=== PATIENT | female | born 1960 | race Caucasian/White ===

== ENCOUNTER → 2017-04-24 | Outpatient (CLI) | payer SELFPAY ==
[~2017-04-24] MED LIST: ACHD5005 PO; ALBU2.5V52 INH; ALPR1TAB21; ARIP2TAB10 PO; BENZ-13 PO; CEPH500C PO; CLIN300C3 PO; CLON1TAB36 PO; CPR500T PO; CYCL10TA9 PO; DIAZ10TA PO; DIAZ10TA3; ESTR2TAB; FLUO40CA PO; HYDR-3812 PO; HYDROCHLOROT; IBP800T PO; LEVO125T6; MEDR5TAB4; NAPR-243 PO; NAPR220C11 PO; PRD20T PO; TRAZ150T42 PO
--- NOTE | 2017-04-24 18:07 | Diagnostic Imaging Report ---
INDICATION: Chronic neck pain, worsening on the right side. TECHNIQUE: AP, lateral and odontoid views cervical spine. CORRELATION STUDY: None FINDINGS: Static imaging demonstrates straightening of the normal cervical lordosis. Alignment otherwise anatomic. Vertebral body heights are maintained. There is moderate to marked disc space narrowing disproportionately at C6-C7 and to a lesser degree C7-T1 and C5-C6 levels. Endplate osteophyte and spur-like formation present. Prevertebral soft tissues are unremarkable. The odontoid intact with lateral masses of C1 and C2 aligned. There may be a partially fractured right mandibular molar. IMPRESSION: 1. Prominent asymmetric disc space narrowing in lower cervical spine, most severe at C6-C7 level. Dictated by: Dictated on workstation # [id number]
== END ==
LOC: RAD 17:03
DX: M48.02 Spinal stenosis, cervical region (principal)
CPT/HCPCS: 72040

== ENCOUNTER 2018-04-02 19:50 | Emergency (ER) | payer MEDICARE, MEDICAID ==
[~2018-04-02] VITALS: Ht 157.5 cm; Wt 68.0 kg
[~2018-04-02 19:50] MED LIST changes: -HYDR-3812 PO
--- NOTE | 2018-04-02 20:50 | ED Lower Extremity ---
General Chief Complaint: Lower Extremity Stated Complaint: KNEE PAIN Source: patient (PT IS DIFFICULT HISTORIAN --SPEECH IS VERY RAPID AND ERRATIC, DIFFICULT TO KEEP ON SUBJECT, AND DIFFICULTY COMPLETING SENTENCES) History of Present Illness Date Seen by Provider: Apr 02, 2018 Time Seen by Provider: 20:20 Initial Comments PT ARRIVES VIA POV C/O RIGHT KNEE PAIN SINCE YESTERDAY STATES SHE GOT OUT OF TRUCK AND HER KNEE STARTED HURTING --DID NOT INJURE IT OR TWIST IT, ETC. STATES TODAY SHE WAS STANDING AND SHE REACHED INTO THE BACK OF HER TRUCK AND "FELT LIKE SOMETHING SNAPPED" IN THE BACK OF HER KNEE--THIS OCCURRED AROUND 1400 NO PRIOR PROBLEMS WITH KNEES, PER PT PT HAS CHRONIC BACK PAIN AND TAKES MORPHINE AND HYDROCODONE DAILY FOR CHRONIC PAIN NO CHANGE IN CHRONIC "NERVE DAMAGE" PAIN AND NUMBNESS/TINGLING TO BACK AND LEGS NO SWELLING OR BRUISING TO KNEE PCP: DR. POLLOCK Allergies and Home Medications Allergies Coded Allergies: Penicillins (Unverified Allergy, Mild, 04/14/09) Home Medications Clonazepam 1 Mg Tablet, 1 MG PO BID, (Reported) Cyclobenzaprine HCl 10 Mg Tablet, 10 MG PO HS PRN for SPASMS Prescribed by: DORIS HUDSON on 03/14/151708 Fluoxetine Hcl 40 Mg Capsule, 40 MG PO DAILY, (Reported) Hydrocodone Bit/Acetaminophen 1 Each Tablet, 1 EACH PO Q4H PRN for PAIN Prescribed by: DORIS HUDSON on 03/14/151708 Naproxen Sodium 220 Mg Capsule, 220 MG PO DAILY, (Reported) Prednisone 20 Mg Tab, 20 MG PO DAILY Prescribed by: DORIS HUDSON on 03/14/151708 Patient Home Medication List Home Medication List Reviewed: Yes Review of Systems Constitutional: no symptoms reported Musculoskeletal: see HPI Skin: no symptoms reported Psychiatric/Neurological: See HPI Past Jymzgqq-Ynedue-Yuaizs Hx Patient Social History Alcohol Use: Occasionally Uses (HEAVY AT TIMES) Recreational Drug Use: No Smoking Status: Current Everyday Smoker (1 1/2 PPD) Recent Foreign Travel: No Contact w/Someone Who Travel: No Seasonal Allergies Seasonal Allergies: No Past Medical History Surgeries: Yes (RIGHT SHOULDER/LABRAL TEAR; D&C; RECTAL FISSURE AND COLON POLYPECTOMY; OVARIAN CYST REMOVAL; TEETH REMOVED) Appendectomy, Orthopedic, Rectal Respiratory: Yes Chronic Bronchitis Cardiac: Yes Hypertension Neurological: Yes ("NERVE DAMAGE FROM BACK" PER PT) Neuropathy Reproductive Disorders: No 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 Sexually Transmitted Disease: No Genitourinary: No Gastrointestinal: No Musculoskeletal: Yes (CHRONIC BACK PAIN--NARCOTIC DEPENDENT--MORPHINE + HYDROCODONE; SPINAL STENOSIS) Degenerate Disk Disease, Chronic Back Pain Endocrine: No HEENT: No (TEETH REMOVED) Cancer: No Psychosocial: Yes Anxiety, Depression Integumentary: No Adverse Reaction/Blood Tranf: No Family Medical History No Pertinent Family Hx Physical Exam Vital Signs Vital Signs - First Documented 04/02/18 20:17 Temp 97.6 Pulse 109 Resp 22 B/P (MAP) 172/97 (122) Pulse Ox 99 O2 Delivery Room Air Capillary Refill : Height, Weight, BMI Height: 5'2" Weight: 175lbs. oz. 79.485887tk; BMI Method:Stated General Appearance: other (DRAMATIC; CONSTANT MOVEMENTS OF ENTIRE BODY, SPEECH RAPID AND ERRATIC; REEKS OF CIGARETTES) Cardiovascular: normal peripheral pulses Hips: right hip normal inspection Legs: right leg normal inspection Knees: right knee bone tenderness, right knee joint effusion, right knee pain, right knee soft tissue tenderness, right knee swelling, right knee other ( DIFFUSE TENDERNESS TO RIGHT KNEE, MILD SWELLING/EFFUSION; UNABLE TO DETERMINE IF LIGAMENT LAXITY IS PRESENT DUE TO PT DISCOMFORT; NO BRUISING OR DEFORMITY; MOTOR/SENSORY/VASCULAR INTACT) Ankles: right ankle normal inspection Feet: right foot normal inspection Neurologic/Tendon: normal sensation, normal motor functions, normal tendon functions Neurologic/Psychiatric: tester regulator II-XII nml as tested, no motor/sensory deficits, alert, oriented x 3, other (ANXIOUS, BEHAVIOR/SPEECH NOTED ABOVE) Skin: normal color, warm/dry Procedures/Interventions Splinting and Joint Reduction : Dipesh wrap: Yes Immobilizers: 19 inch Knee Ordered: Crutches Progress/Results/Core Measures Results/Orders My Orders Orders - ROSINA YU DO Knee, Right, 3 Views (04/02/18 20:27) Dipesh Bandage (04/02/18 21:00) Crutches (04/02/18 21:00) Flexion Limit Knee (04/02/18 21:00) Vital Signs/I&O 04/02/18 20:17 Temp 97.6 Pulse 109 Resp 22 B/P (MAP) 172/97 (122) Pulse Ox 99 O2 Delivery Room Air Progress Progress Note : Progress Note NO ORTHO COVERAGE TODAY Diagnostic Imaging Comments XRAYS RIGHT KNEE--NO ACUTE PROCESS, MILD TO MODERATE OSTEOARTHRITIS, NO LARGE JOINT EFFUSION, PER RADIOLOGIST REPORT @ 2104 Reviewed: Reviewed by Me Departure Impression Primary Impression: Sprain of right knee Disposition: HOME, SELF-CARE Condition: Stable Departure-Patient Inst. Referrals: OLAYINKA POLLOCK MD (PCP/Family) Primary Care Physician REMBERTO PARSONS MD ORTHO 4 STATES Patient Instructions: Going Up and Down Curbs or Stairs With a Walker or Crutches, How to Use Crutches, How to Use an Elastic Bandage, Knee Immobilizer ( DC), Knee Sprain (DC) Add. Discharge Instructions: ICE, DIPESH WRAP, KNEE IMMOBILIZER AND CRUTCHES ELEVATE LEG MUCH POSSIBLE TAKE YOUR HOME PAIN MEDICATIONS PRESCRIBED FOLLOW UP WITH ORTHOPEDIC SURGEON OF CHOICE NEXT WEEK FOR FURTHER CARE All discharge instructions reviewed with patient and/or family. Voiced understanding. ROSINA YU DO Apr 02, 2018 20:50
--- NOTE | 2018-04-02 21:07 | Diagnostic Imaging Report ---
EXAMINATION: Right knee radiographs, 3 views. COMPARISON: Right knee radiographs October 23, 2007. HISTORY: 57-year-old female, right knee pain and swelling. FINDINGS: There is no identified acute fracture or dislocation. There is mild to moderate patellofemoral compartment joint space loss with small osteophytes. The medial and lateral compartments are not significantly narrowed. IMPRESSION: 1. No identified acute bony abnormality of the right knee. 2. Mild to moderate patellofemoral compartment osteoarthritis. No large knee joint effusion. Dictated by: Dictated on workstation # [id number]
[2018-04-02 21:34] VITALS: BP 172/97
== END 2018-04-02 21:34 | disposition home or self-care (01) ==
LOC: EDUNIT# 19:50 → ER 19:52
DX: S83.91XA Sprain of unspecified site of right knee, initial encounter (principal); I10 Essential (primary) hypertension; F41.9 Anxiety disorder, unspecified; F32.9 Major depressive disorder, single episode, unspecified; F17.210 Nicotine dependence, cigarettes, uncomplicated; Z86.010 Personal history of colon polyps; Z87.448 Personal history of other diseases of urinary system; Z90.89 Acquired absence of other organs; Z88.0 Allergy status to penicillin; Z79.52 Long term (current) use of systemic steroids; X50.1XXA Overexertion from prolonged static or awkward postures, initial encounter
CPT/HCPCS: 73562

== ENCOUNTER 2019-03-02 05:51 | Outpatient (CLI) | payer MEDICARE, MEDICAID ==
[~2019-03-02] VITALS: Ht 157.5 cm; Wt 68.0 kg
[2019-03-02] MEDS ORDERED: MORP-34 PO (14:06)
[2019-03-02] MEDS ORDERED: AMIT10TA6 PO (14:06)
[2019-03-02] MEDS ORDERED: HYDR-3820 PO (14:06)
[2019-03-02] MEDS ORDERED: ESTR42.52 VG (14:08)
== END 2019-03-02 14:09 ==
LOC: PREOP 05:51
PROVIDERS: ATTEND Surgery
DX: Z01.818 Encounter for other preprocedural examination (principal); Z86.010 Personal history of colon polyps

== ENCOUNTER → 2019-07-06 | Outpatient (CLI) | payer MEDICARE, MEDICAID ==
[~2019-07-06] MED LIST changes: +AMIT10TA6 PO; +ESTR42.52 VG; +HYDR-3820 PO; +MORP-34 PO
[2019-07-06 11:56] LABS: BASOPHILS % (AUTO) 0 % (0-10); EOSINOPHILS # (AUTO) 0.2 10^3/uL (0.0-0.3); EOSINOPHILS % (AUTO) 4 % (0-10); HEMATOCRIT 38 % (35-52); HEMOGLOBIN 12.4 G/DL (11.5-16.0); LYMPHOCYTES # (AUTO) 1.8 X 10^3 (1.0-4.0); LYMPHOCYTES % (AUTO) 34 % (12-44); MEAN CORPUSCULAR HEMOGLOBIN 28 PG (25-34); MEAN CORPUSCULAR HGB CONC 33 G/DL (32-36); MEAN CORPUSCULAR VOLUME 87 FL (80-99); MEAN PLATELET VOLUME 8.7 FL (7.4-10.4); MONOCYTES # (AUTO) 0.4 X 10^3 (0.0-1.0); MONOCYTES % (AUTO) 7 % (0-12); NEUTROPHILS % (AUTO) 55 % (42-75); PLATELET COUNT 239 10^3/uL (130-400); RED CELL DISTRIBUTION WIDTH 12.9 % (10.0-14.5); WHITE BLOOD COUNT 5.4 10^3/uL (4.3-11.0)
[2019-07-06 12:12] LABS: ALANINE AMINOTRANSFERASE 20 U/L (0-55); ALBUMIN 3.9 GM/DL (3.2-4.5); ALKALINE PHOSPHATASE 101 U/L (40-136); BILIRUBIN,TOTAL 0.4 MG/DL (0.1-1.0); BUN/CREATININE RATIO 35; CARBON DIOXIDE 21 MMOL/L (21-32); CHLORIDE 108 MMOL/L (98-107); CREATININE SERUM 0.68 MG/DL (0.60-1.30); GFR ESTIMATED > 60; GLUCOSE 100 MG/DL (70-105); POTASSIUM 4.1 MMOL/L (3.6-5.0); SODIUM 139 MMOL/L (135-145); TOTAL PROTEIN 7.1 GM/DL (6.4-8.2)
--- NOTE | 2019-07-06 12:28 | Diagnostic Imaging Report ---
PROCEDURE: CT head without contrast. TECHNIQUE: Multiple contiguous axial images were obtained through the brain without the use of intravenous contrast. Auto Exposure Controls were utilized during the CT exam to meet ALARA standards for radiation dose reduction. INDICATION: Migraine head pain FINDINGS: There is no hemorrhage, hydrocephalus, edema, mass, mass effect or evidence for elevation of the intracranial pressures. The basilar cisterns are patent. The calvarium and orbits unremarkable. The paranasal sinuses and mastoids are clear. IMPRESSION: Normal CT head. Dictated by: Dictated on workstation # [id number]
[2019-07-06 12:33] LABS: FREE T4 (FREE THYROXINE) 0.98 NG/DL (0.70-1.48)
== END ==
LOC: RAD 11:28
PROVIDERS: ATTEND Nurse Practitioner Family
DX: E05.80 Other thyrotoxicosis without thyrotoxic crisis or storm (principal); G43.009 Migraine without aura, not intractable, without status migrainosus
CPT/HCPCS: 36415; 70450; 80053; 84436; 84439; 84443; 85025

== ENCOUNTER 2020-11-05 15:14 | Emergency (ER) | payer MEDICARE, MEDICAID ==
[~2020-11-05] VITALS: Ht 157 cm; Wt 79.0 kg
[~2020-11-05 15:14] MED LIST changes: +ACHYD1T PO; -AMIT10TA6 PO; +AMT10T PO; -HYDR-3820 PO; -MORP-34 PO; +MORP-69 PO
--- NOTE | 2020-11-05 15:38 | ED Lower Extremity ---
General Chief Complaint: Lower Extremity Stated Complaint: KNEE PAIN FROM FALL Nursing Triage Note: ARRIVED VIA WC WITH COMPLAINTS OF LEFT KNEE PAIN. STATES SHE FELL X2 WEEKS AGO HURTING IT AND WAS IN THE SHOWER THIS AM AND ALMOST FELL HURTING IT AGAIN. STATES IT HAS BECAME SWOLLEN SINCE THE SHOWER INCIDENT AND PAIN HAS INCREASED. PT STATES SHE TOOK MS AND A HYDROCODONE HOSPITAL CODER. Nursing Sepsis Screen: No Definite Risk Source: patient Exam Limitations: no limitations History of Present Illness Date Seen by Provider: Nov 05, 2020 Time Seen by Provider: 15:25 Initial Comments Patient presents ER by private conveyance chief complaint of aggravation of an existing injury of her left knee. She says 2 weeks ago she fell to her knee and pinched her right shoulder at the same time. She was being followed by primary care and her swelling in her knee has been consistent and her pain has been getting better. She is chronically on morphine and has hydrocodone for breakthrough pain. While in the shower today she started to lose her balance and somehow caused a shooting pain from her knee that radiates down and up her leg. Swelling is no worse but her pain is. She took a morphine tablet and hydrocodone with some relief of pain she is now down to a 6 out of 10. She states she did not feel or hear any popping sensation. She is able to bear weight for transfer only now. Allergies and Home Medications Allergies Coded Allergies: Penicillins (Unverified Allergy, Mild, 04/14/09) Home Medications Amitriptyline HCl 10 Mg Tablet, 10 MG PO DAILY, (Reported) Estradiol 42.5 Gm Cream.appl, 2 GM VG MoTh, (Reported) Hydrocodone Bit/Acetaminophen 1 Each Tablet, 1 TAB PO Q4H PRN for PAIN-MILD TO MODERATE, (Reported) Morphine Sulfate 30 Mg Tablet.er, 30 MG PO Q12H, (Reported) Patient Home Medication List Home Medication List Reviewed: Yes Review of Systems Constitutional: No chills, No fever EENTM: No ear discharge, No ear pain Respiratory: No cough, No short of breath Cardiovascular: No chest pain, No edema Gastrointestinal: No abdominal pain, No nausea Genitourinary: No discharge, No dysuria Musculoskeletal: see HPI; No back pain; joint pain All Other Systems Reviewed Negative Unless Noted: Yes Past Ffegrpg-Abrddg-Kfkzhu Hx Patient Social History Alcohol Use: Denies Use Smoking Status: Current Everyday Smoker Type Used: Cigarettes 2nd Hand Smoke Exposure: Yes Recent Infectious Disease Expo: No Recent Hopitalizations: No Seasonal Allergies Seasonal Allergies: No Past Medical History Surgeries: Yes (anal fissure, R shoulder sx, ) Appendectomy, Oophorectomy, Orthopedic, Rectal Respiratory: No Chronic Bronchitis Cardiac: Yes Hypertension Neurological: Yes ("NERVE DAMAGE FROM BACK" PER PT) Neuropathy Reproductive Disorders: No 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 Sexually Transmitted Disease: No Genitourinary: No Gastrointestinal: Yes Polyps Musculoskeletal: Yes (stenosis) Degenerate Disk Disease, Chronic Back Pain Endocrine: No HEENT: No (TEETH REMOVED) Cancer: No Psychosocial: Yes Anxiety, Depression Integumentary: No Blood Disorders: No Adverse Reaction/Blood Tranf: No Family Medical History No Pertinent Family Hx Physical Exam Vital Signs Vital Signs - First Documented 11/05/20 15:20 Temp 36.5 Pulse 99 Resp 16 B/P (MAP) 185/99 (127) Pulse Ox 97 O2 Delivery Room Air Capillary Refill : Less Than 3 Seconds Height, Weight, BMI Height: 5'2.00" Weight: 150lbs. 0.0oz. 68.341952ks; 32.00 BMI Method:Stated General Appearance: WD/WN, mild distress HEENT: PERRL/EOMI, pharynx normal Neck: full range of motion, normal inspection Cardiovascular: normal peripheral pulses, regular rate, rhythm Respiratory: no respiratory distress, no accessory muscle use Hips: bilateral hip non-tender, bilateral hip normal inspection, bilateral hip normal range of motion Legs: bilateral leg non-tender, bilateral leg normal inspection, bilateral leg normal range of motion Knees: right knee non-tender, right knee normal inspection, right knee normal range of motion, right knee no evidence of injury; left knee pain (Anterior tibial), left knee soft tissue tenderness, left knee swelling, left knee other (Lacks about 15 to 20 degrees of extension due to pain.) Ankles: bilateral ankle non-tender, bilateral ankle normal inspection, bilateral ankle normal range of motion, bilateral ankle no evidence of injury Neurologic/Psychiatric: no motor/sensory deficits, alert, normal mood/affect, oriented x 3 Progress/Results/Core Measures Results/Orders My Orders Orders - CALEB MORGAN Knee, Left, 3 Views (11/05/20 15:33) Vital Signs/I&O 11/05/20 15:20 Temp 36.5 Pulse 99 Resp 16 B/P (MAP) 185/99 (127) Pulse Ox 97 O2 Delivery Room Air Blood Pressure Mean: 127 Progress Progress Note : Time: 15:36 Progress Note She is neurovascularly intact distal to the injury. She did not have a fall nor did she strike her head. No loss of consciousness. Suspect she has reaggravated an acute injury of her left knee. Probably ligamentous sprain/strain and we will give her an ice pack and get x-rays and reexamine her discomfort at that time. She has plenty of opiates on board we did discuss getting her a prescription for some Narcan just in case. She has asked for a muscle relaxant and we explained that this can cause unsafe levels of drowsiness and hypoventilation. We will reexamine her after short period. Diagnostic Imaging Diagonstic Imaging: Xray Plain Films/CT/US/NM/MRI: knee Comments [facility] [place], [place] NAME: ANJANA JARQUIN [facility] REC#: [id number] PT STATUS: REG ER : 1960 PHYSICIAN: CALEB MORGAN MD ADMIT DATE: 11/05/20/ER Draft Date of Exam:11/05/20 KNEE, LEFT, 3 VIEWS INDICATION: Knee pain post fall TECHNIQUE: 3 views of the left knee CORRELATION STUDY: None FINDINGS: The joint spaces are maintained. The articular surfaces are smooth and preserved. There is no acute bony abnormality. Soft tissues are unremarkable. IMPRESSION: 1. Negative for acute bony abnormality of the knee. Dictated on workstation # [id number] Dict: 11/05/20 1557 Trans: 11/05/20 1558 DO [id number] Interpreted by: ROMEL ZAMORA DO Electronically signed by: Reviewed: Reviewed by Me (Left) Departure Impression Primary Impression: Left knee sprain Qualified Codes: S83.422A - Sprain of lateral collateral ligament of left knee, initial encounter Disposition: HOME, SELF-CARE Condition: Stable Departure-Patient Inst. Decision time for Depature: 16:30 Referrals: OLAYINKA POLLOCK MD (PCP/Family) Primary Care Physician QUINN,CHANTAL F DO Patient Instructions: Knee Sprain ED Add. Discharge Instructions: Ice for 20 minutes every 2 hours while awake for the next 3 days. Heat and topical creams as necessary. Use your pain medicines to control the pain. Tomorrow call Dr. Cloud's office or the orthopedic surgeon of your choice for follow-up. Crutches or wheelchair as necessary. Weightbearing on the left leg as tolerated. Wear your knee immobilizer until you see the surgeon. All discharge instructions reviewed with patient and/or family. Voiced understanding. Copy Copies To 1: CHANTAL CLOUD TITUS J Nov 05, 2020 15:37
--- NOTE | 2020-11-05 15:58 | Diagnostic Imaging Report ---
INDICATION: Knee pain post fall TECHNIQUE: 3 views of the left knee CORRELATION STUDY: None FINDINGS: The joint spaces are maintained. The articular surfaces are smooth and preserved. There is no acute bony abnormality. Soft tissues are unremarkable. IMPRESSION: 1. Negative for acute bony abnormality of the knee. Dictated by: Dictated on workstation # [id number]
[2020-11-05 17:11] VITALS: BP 185/99
== END 2020-11-05 17:11 | disposition home or self-care (01) ==
LOC: EDUNIT# 15:14 → ER 15:16
DX: S83.8X2A Sprain of other specified parts of left knee, initial encounter (principal); I10 Essential (primary) hypertension; F32.9 Major depressive disorder, single episode, unspecified; G89.29 Other chronic pain; M54.9 Dorsalgia, unspecified; F41.9 Anxiety disorder, unspecified; F17.210 Nicotine dependence, cigarettes, uncomplicated; Z88.0 Allergy status to penicillin; Z79.891 Long term (current) use of opiate analgesic; W23.1XXA Caught, crushed, jammed, or pinched between stationary objects, initial encounter
CPT/HCPCS: 73562; 99283; L1830

== ENCOUNTER → 2020-12-12 | Outpatient (CLI) | payer MEDICARE, MEDICAID ==
[~2020-12-12] MED LIST changes: +CHOL500049 PO; +GLYC10.7 IH; +METO50TA7 PO; +OMEP40CA27 PO; +RT-ALBUINH IH; +TEMA15CA PO
--- NOTE | 2020-12-12 11:03 | Diagnostic Imaging Report ---
INDICATION: 60-year-old postmenopausal female. COMPARISON: None. FINDINGS: AP Spine L1-L4: [BMD (g/cm2): 1.127] [T-Score: -0.6] [Z-Score: 0.1] [BMD Previous: na] [BMD % Change: na] LT Hip Neck: [BMD (g/cm2): 0.780] [T-Score: -1.9] [Z-Score: -0.9] LT Hip Total: [BMD (g/cm2):0.921] [T-Score:-0.7] [Z-Score: -0.1] [BMD Previous: na] [BMD % Change: na] RT Hip Neck: [BMD (g/cm2):0.800] [T-Score:-1.7] [Z-Score:-0.8] RT Hip Total: [BMD (g/cm2):0.909] [T-score:-0.8] [Z-Score:-0.2] [BMD Previous:na] [BMD % Change:na] *Indicates significant change from prior examination based on 95% confidence level. World Health Organization criteria for BMD interpretation classify patients as Normal (T-score at or above -1.0), Osteopenic (T-score between -1.0 and -2.5) or Osteoporotic (T-score at or below -2.5). LIMITATIONS AND MODIFICATION: None. FRACTURE RISK (FRAX SCORE): The ten year probability of (%): Major Osteoporotic Fracture: [8.8] Hip Fracture: [1.6] IMPRESSION: 1. Osteopenia (Low bone mass). 2. Baseline examination. 3. See below National Osteoporosis Foundation guidelines on when to potentially initiate pharmacologic therapy. Based on the National Osteoporosis Foundation Guidelines, pharmacologic treatment should be initiated in any of the following, unless clinical conditions suggest otherwise: * Any patient with prior fragility fracture of the hip or vertebrae. A spine fracture indicates 5X risk for subsequent spine fracture and 2X risk for subsequent hip fracture. * Osteoporosis (T-score <-2.5). * Postmenopausal women and men age 50 and older with low bone mass/osteopenia (T-score between -1.0 and -2.5) by DXA and 10-year major osteoporotic fracture greater than 20% or a 10-year probability of hip fracture greater than 3%. These fracture risks are supplied above in the FRAX score, if applicable. * Clinician judgement and/or patient preferences may indicate treatment for people with 10-year fracture probabilities above or below these levels. Dictated by: Dictated on workstation # [id number]
--- NOTE | 2020-12-12 11:18 | Diagnostic Imaging Report ---
PROCEDURE: MRI lumbar spine. TECHNIQUE: Multiplanar, multisequence MRI of the lumbar spine was performed without contrast. INDICATION: Chronic back pain. COMPARISON: 11/27/2010 FINDINGS: For the purposes of this exam, last well-formed disc space is denoted to be the L5-S1 level. Evaluation of static alignment shows mild grade 1 anterolisthesis at L4-L5. There is no evidence of jumped facets. Vertebral body heights are maintained. There is no acute fracture. Evaluation of marrow signal demonstrates mild Modic type I change involving the adjacent endplates at L5-S1. Intervertebral disc heights show mild multilevel height loss. Visualized portions of the distal cord show small syrinx. This was present previously. Otherwise, included portions of the distal cord are unremarkable. Conus terminates at approximately the L1-L2 level. No abnormal intrathecal filling defects are seen. Pre and paravertebral soft tissue structures are unremarkable. Note is made of cystic fluid collection within the posterior pelvis that measures 9.3 x 8.1 cm. It is only partially included within the [id number]-pk-nizr. Axial images demonstrate the following: T12-L1: There is mild broad-based posterior disc bulge, eccentric to the left. There is also bilateral ligamentum flavum laxity and facet arthropathy. As a result, there is bivg-mh-jexlogyq narrowing of the spinal canal and minimal narrowing of the bilateral neural foramen. L1-L2: There is broad-based posterior disc bulge with bilateral ligamentum flavum laxity and facet arthropathy. As a result, there is mild narrowing of the spinal canal and bilateral neural foramen. L2-L3: There is slight broad-based posterior disc bulge and bilateral ligamentum flavum laxity and facet arthropathy. As a result, there is mild narrowing of the spinal canal and bilateral neural foramen. L3-L4: There is broad-based posterior disc bulge with bilateral ligamentum flavum laxity and facet arthropathy. As a result, there is moderate stenosis of the spinal canal and wghz-jn-svjofabm stenosis of bilateral neural foramen. L4-L5: There is unroofing of the disc secondary to previously described anterolisthesis. There is also mild broad-based posterior disc bulge and prominent bilateral facet arthropathy. This does result in severe spinal canal stenosis. Thecal sac is narrowed to approximately 5 mm in AP thickness. There is also moderate stenosis of the bilateral neural foramen. L5-S1: There is broad-based posterior disc bulge, eccentric to the left. There is also bilateral ligamentum flavum laxity and facet arthropathy. As a result, there is moderate narrowing of the spinal canal and left neuroforamen. There is mild narrowing on the right. IMPRESSION: 1. Multilevel degenerative changes of the lumbar spine greatest at the L4-L5 level as described above. Overall, degenerative changes have progressed since 11/27/2010. 2. No acute fracture or dislocation. 3. Partially visualized cystic fluid collection within the posterior pelvis. This may be ovarian in nature, but exact etiology is incompletely characterized on this exam. Further evaluation with pelvic sonogram is recommended. Dictated by: Dictated on workstation # [id number]
--- NOTE | 2020-12-12 13:12 | Diagnostic Imaging Report ---
PROCEDURE: MR imaging cervical spine without contrast. TECHNIQUE: Multiplanar, multisequence MR imaging of the cervical spine was performed without contrast. INDICATION: Cervical radiculopathy. COMPARISON: Cervical spine MRI from 03/27/2011 FINDINGS: No change in the mild straightening of cervical spine. No spinal listhesis. No fracture or marrow replacing process. There is suboptimal fat suppression in the posterior aspect of the lower cervicothoracic region. The cervical cord is normal in size and signal. No epidural mass or fluid collection is appreciated. Visualized portions of the brachial plexus are unremarkable. C2-C3: No spinal canal or foraminal narrowing. C3-C4: Small disc protrusion is unchanged and does not result in spinal stenosis or foraminal narrowing. C4-C5: Uncovertebral joint hypertrophy causes mild left and moderate right foraminal narrowing. No spinal stenosis. C5-C6: Central disc protrusion and bilateral uncovertebral joint hypertrophy is present. This results in mild spinal stenosis and mild right foraminal narrowing. The right foraminal narrowing has worsened since prior examination. Spinal stenosis is unchanged. C6-C7: Central disc protrusion and right uncovertebral joint hypertrophy are present. There is unchanged mild spinal stenosis. Moderate to severe right foraminal narrowing has developed. C7-T1: No spinal canal or foraminal narrowing. IMPRESSION: 1. Mild straightening of cervical spine without fracture. 2. Multilevel degenerative changes have mildly progressed since 2011 examination. There is now mild spinal stenosis at multiple levels along with [id number]-pb-mhnssjte right-sided foraminal stenoses. Dictated by: Dictated on workstation # [id number]
== END ==
LOC: RAD 08:37
PROVIDERS: ATTEND Orthopaedic Surgery Orthopaedic Surgery of the Spine
DX: M43.16 Spondylolisthesis, lumbar region (principal); M47.22 Other spondylosis with radiculopathy, cervical region; M47.815 Spondylosis without myelopathy or radiculopathy, thoracolumbar region; M47.816 Spondylosis without myelopathy or radiculopathy, lumbar region; M51.25 Other intervertebral disc displacement, thoracolumbar region; M51.26 Other intervertebral disc displacement, lumbar region; M51.37 Other intervertebral disc degeneration, lumbosacral region; M48.02 Spinal stenosis, cervical region; M48.05 Spinal stenosis, thoracolumbar region; M48.061 Spinal stenosis, lumbar region without neurogenic claudication; Z78.0 Asymptomatic menopausal state
CPT/HCPCS: 72141; 72148; 77080

== ENCOUNTER → 2020-12-13 | Outpatient (CLI) | payer MEDICARE, MEDICAID ==
[~2020-12-13] VITALS: Ht 157.5 cm; Wt 77.4 kg
== END ==
LOC: PREOP 10:21
PROVIDERS: ATTEND Surgery
DX: Z01.812 Encounter for preprocedural laboratory examination (principal); Z12.11 Encounter for screening for malignant neoplasm of colon; Z86.010 Personal history of colon polyps

== ENCOUNTER → 2020-12-15 | Outpatient (CLI) | payer MEDICARE, MEDICAID ==
--- NOTE | 2020-12-15 16:15 | Diagnostic Imaging Report ---
PROCEDURE: MRI left joint lower extremity without contrast. TECHNIQUE: Multiplanar, multisequence non contrast-enhanced MRI of the left lower extremity was accomplished. INDICATION: Knee instability. COMPARISON: There is no prior MRI examination available for comparison. FINDINGS: The plain film examination of the left knee performed on 11/05/2020 failed to show any sign of an acute bony abnormality. On the proton dense fat-saturated sagittal series there is a prominent area of increased signal along the inferior articular surface of the posterior horn of the medial meniscus. This would be consistent with a tear. The lateral meniscus appears to be intact. The anterior and posterior cruciate ligaments, quadriceps and infrapatellar tendons, the fibular collateral ligament, the biceps femoris tendon and iliotibial band in the median lateral retinaculum are intact. There is no evidence for a tear of the medial collateral ligament but there is mild edema/inflammation about the medial collateral ligament as it courses by the proximal tibia. On the coronal STIR series, there is a vague area of increased signal in the subarticular region of the medial half of the proximal tibia. This may be related to bone edema from a recent contusion. There is no evidence for a fracture in this area. There is no acute bony abnormality noted otherwise. There does appear to be moderate degenerative changes involving the articular surfaces of the medial and lateral femoral condyles and the lateral aspect of the patellofemoral space. There is at least a moderate joint effusion present. There is also mild edema/inflammation of the soft tissues along the posterolateral aspect of the distal femur and anterior to the infrapatellar tendon. There is no sign of a Gómez's cyst. IMPRESSION: 1. There is a prominent tear of the posterior horn of the medial meniscus. The lateral meniscus is intact. 2. The major ligaments and tendons show no sign of an acute tear. However, there is mild edema/inflammation about the medial collateral ligament as it courses by the proximal tibia. 3. The vague area of altered signal in the medial aspect of the proximal tibia does suggest bone edema. This may be related to a recent contusion. 4. There is soft tissue edema about the knee joint as well as at least a moderate joint effusion. Dictated by: Dictated on workstation # [id number]
== END ==
LOC: RAD 14:00
PROVIDERS: ATTEND Orthopaedic Surgery
DX: M25.362 Other instability, left knee (principal); M25.462 Effusion, left knee
CPT/HCPCS: 73721

== ENCOUNTER → 2021-02-13 | Outpatient (CLI) | payer MEDICARE, MEDICAID ==
[~2021-02-13] MED LIST changes: -OMEP40CA27 PO; +OMEP40CA6 PO
== END ==
LOC: LAB FS 10:00
PROVIDERS: ATTEND Orthopaedic Surgery
DX: Z01.812 Encounter for preprocedural laboratory examination (principal); Z20.822 Contact with and (suspected) exposure to COVID-19
CPT/HCPCS: 87635

== ENCOUNTER 2022-06-15 22:21 | Emergency (ER) | payer MEDICARE, MEDICAID ==
[~2022-06-15] VITALS: Ht 157.5 cm; Wt 77.4 kg
[~2022-06-15 22:21] MED LIST changes: +ALBU8.5H6 IH; +CYCL10TA25 PO; -RT-ALBUINH IH
[2022-06-15 22:46] LABS: BILIRUBIN,URINE NEGATIVE (NEGATIVE); CLARITY,URINE CLEAR; COLOR,URINE YELLOW; GLUCOSE, URINE (UA) NEGATIVE (NEGATIVE); KETONES,URINE NEGATIVE (NEGATIVE); LEUKOCYTE ESTERASE ,URINE NEGATIVE (NEGATIVE); NITRITE,URINE NEGATIVE (NEGATIVE); PH,URINE 6.5 (5-9); PROTEIN,URINE NEGATIVE (NEGATIVE)
[2022-06-15 22:56] LABS: BACTERIA,URINE NEGATIVE /HPF
--- NOTE | 2022-06-15 22:59 | ED General ---
General Chief Complaint: Respiratory Problems Stated Complaint: SOA Nursing Triage Note: Pt ambulates to ED7 with c/o coughing since yesterday. Pt has hx of asthma, used nebulizer and old albuterol today with no relief. Pt also reports heartburn and sore throat from bile coming up, and diarrhea that is black. Pt states she has been having a "kidney infection" that started weeks ago with painful urination/urgency/frequency. Pt states her doctor has and she has not been able to find another provider so she has not been seen. Pt states she needs a rescue inhaler, but does not have one since she does not have a provider. Source of Information: Patient (DIFFICULT TO KEEP ON SUBJECT, SPEECH IS RAPID AND ERRATIC. ) History of Present Illness Date Seen by Provider: Jun 15, 2022 Time Seen by Provider: 22:40 Initial Comments PT ARRIVES VIA POV MULTITUDE OF COMPLAINTS--DIFFICULT TO KEEP ON SUBJECT. C/O NON-PRODUCTIVE COUGH AND SHORTNESS OF BREATH SINCE YESTERDAY STATES SHE HAS "PRE-COPD" AND HAD AN OLD ALBUTEROL INHALER THAT SHE USED THIS MORNING WITHOUT RELIEF. SHE WAS UNAWARE OF FEVER--TEMP IS 39.7=103.4 ON ARRIVAL HERE C/O HEADACHE C/O BODY ACHES ALSO C/O SUPRAPUBIC PAIN AND RIGHT FLANK PAIN ON URINATING X 2 WEEKS "MY BOYFRIEND'S A GUARD ENTRANCE REGISTRAR AND I STAY WITH HIM AND HE SAYS IT STINKS" NO NAUSEA/VOMITING, HAS HAD DIARRHEA X 2 TODAY "I'VE HAD SUPERBAD HEARTBURN" AND IT SERVIN IN HER THROAT WHEN SHE LAYS FLAT, SO SHE HAS BEEN SLEEPING IN A RECLINER FOR THE LAST 4 NIGHTS ALSO STATES SHE HAS BEEN BURPING ALOT --"ACID" SHE HAS TAKEN BAKING SODA AND WATER, AND PEPTO BISMOL NO UPPER ABDOMINAL PAIN NO CHEST PAIN NO LEG SWELLING--"BUT MY BOYFRIEND SAID THEY WERE SWOLLEN A FEW WEEKS AGO" Allergies and Home Medications Allergies Coded Allergies: Penicillins (Unverified Allergy, Mild, 04/14/09) Patient Home Medication List Albuterol Sulfate (Ventolin Hfa) 1 Puff Puff, 2 PUFF IH PRN, (Reported) Entered as Reported by: MCKENNA HAYES on 12/13/20 6741 Cholecalciferol (Vitamin D3) (Vitamin D3) 1,250 Mcg Capsule, 50,000 UNITS PO DAILY, (Reported) Entered as Reported by: MCKENNA HAYES on 12/13/20 154 Glycopyrrolate/Formoterol Fum (Bevespi Aerosphere Inhaler) 10.7 Gm Hfa.aer.ad, 10.7 GM IH PRN, (Reported) Entered as Reported by: MCKENNA HAYES on 12/13/20 154 Hydrocodone Bit/Acetaminophen (HYDROcodone/APAP 10/325 TABLET) 1 Each Tablet, 1 TAB PO Q4H PRN for PAIN-MILD TO MODERATE, (Reported) Entered as Reported by: PORSCHE PEARCE on 03/02/19 140 Metoprolol Succinate (Metoprolol Succinate) 50 Mg Tab.er.24h, 50 MG PO DAILY, (Reported) Entered as Reported by: MCKENNA HAYES on 12/13/201540 Morphine Sulfate (Morphine Sulfate ER) 30 Mg Tablet.er, 30 MG PO Q12H, (Reported) Entered as Reported by: PORSCHE PEARCE on 03/02/19 140 Omeprazole (Omeprazole) 40 Mg Capsule.dr, 40 MG PO DAILY, (Reported) Entered as Reported by: MCKENNA HAYES on 12/13/201540 Temazepam (Temazepam) 15 Mg Capsule, 15 MG PO HS, (Reported) Entered as Reported by: MCKENNA HAYES on 12/13/201540 Past Aqvscse-Fokguu-Auvejr Hx Patient Social History Tobacco Use?: Yes Tobacco type used: Cigarettes Smoking Status: Current Everyday Smoker Use of E-Cig and/or Vaping dev: No Substance use?: Yes Substance type: Marijuana Substance frequency: Rarely Alcohol Use?: Yes Alcohol Frequency: Rarely Pt feels they are or have been: No Immunizations Up To Date Influenza Vaccine Up-to-Date: Yes; Up-to-Date First/Initial COVID19 Vaccinat: UTD, uknown date Second COVID19 Vaccination Xiang: UTD, unknown date Seasonal Allergies Seasonal Allergies: No Past Medical History Surgeries: Yes (anal fissure, R shoulder sx, ) Appendectomy, Oophorectomy, Orthopedic, Rectal Respiratory: No Chronic Bronchitis Cardiac: Yes Hypertension Neurological: Yes ("NERVE DAMAGE FROM BACK" PER PT) Neuropathy Reproductive Disorders: No Female Reproductive Disorders: Ovarian Cyst [employer] History: Menopausal Sexually Transmitted Disease: No Genitourinary: No Gastrointestinal: Yes Chronic Constipation, Polyps Musculoskeletal: Yes (stenosis) Degenerate Disk Disease, Chronic Back Pain Endocrine: No HEENT: No (TEETH REMOVED) Cancer: No Psychosocial: Yes Anxiety, PTSD, Depression Integumentary: No Blood Disorders: No Adverse Reaction/Blood Tranf: No Family Medical History No Pertinent Family Hx Physical Exam Vital Signs Vital Signs - First Documented 06/15/22 22:34 Temp 39.7 Pulse 126 Resp 28 B/P (MAP) 180/111 (134) Pulse Ox 95 O2 Delivery Room Air Capillary Refill : Height, Weight, BMI Height: 5'2.00" Weight: 150lbs. 0.0oz. [id number]; 31.00 BMI Method:Stated Progress/Results/Core Measures Suspected Sepsis SIRS Temperature: Pulse: 126 Respiratory Rate: 28 Blood Pressure 180 /111 Mean: 134 Results/Orders Lab Results Laboratory Tests Test 06/15/22 22:37 06/15/22 22:41 06/15/22 22:56 Range/Units Urine Color YELLOW Urine Clarity CLEAR Urine pH 6.5 5-9 Urine Specific [place] 1.020 1.016-1.022 Urine Protein NEGATIVE NEGATIVE Urine Glucose (UA) NEGATIVE NEGATIVE Urine Ketones NEGATIVE NEGATIVE Urine Nitrite NEGATIVE NEGATIVE Urine Bilirubin NEGATIVE NEGATIVE Urine Urobilinogen 0.2 < = 1.0 MG/DL Urine Leukocyte Esterase NEGATIVE NEGATIVE Urine RBC (Auto) NEGATIVE NEGATIVE Urine RBC NONE /HPF Urine WBC NONE /HPF Urine Crystals NONE /LPF Urine Bacteria NEGATIVE /HPF Urine Casts NONE /LPF Urine Mucus NEGATIVE /LPF Urine Culture Indicated NO Influenza Type A (RT-PCR) Detected H Not Detecte Influenza Type B (RT-PCR) Not Detected Not Detecte SARS-CoV-2 RNA (RT-PCR) Not Detected Not Detecte Urine Opiates Screen NEGATIVE NEGATIVE Urine Oxycodone Screen NEGATIVE NEGATIVE Urine Methadone Screen NEGATIVE NEGATIVE Urine Propoxyphene Screen NEGATIVE NEGATIVE Urine Barbiturates Screen NEGATIVE NEGATIVE Ur Tricyclic Antidepressants Screen NEGATIVE NEGATIVE Urine Phencyclidine Screen NEGATIVE NEGATIVE Urine Amphetamines Screen NEGATIVE NEGATIVE Urine Methamphetamines Screen POSITIVE H NEGATIVE Urine Benzodiazepines Screen POSITIVE H NEGATIVE Urine Cocaine Screen NEGATIVE NEGATIVE Urine Cannabinoids Screen POSITIVE H NEGATIVE My Orders Orders - ROSINA YU DO [facility] 19 Inhouse Test (06/15/22 22:36) Influenza A And B By Pcr (06/15/22 22:36) Isolation Central Supply Req (06/15/22 22:36) Ua Culture If Indicated (06/15/22 22:39) Drug Screen Stat (Urine) (06/15/22 22:53) Chest 1 View, Ap/Pa Only (06/15/22 22:53) Rt Request For Service (06/15/22 22:53) Fluticasone/Salmeterol 232-14 (Airduo Re (06/16/22 08:00) Acetaminophen Tablet (Tylenol Tablet) (06/15/22 23:00) Ibuprofen Tablet (Motrin Tablet) (06/15/22 23:00) Medications Given in ED Current Medications Medications Dose Ordered Sig/Celso Route Start Time Stop Time Status Last Admin Dose Admin Acetaminophen 1,000 mg ONCE ONCE PO 06/15/22 23:00 06/15/22 23:01 DC 06/15/22 22:59 1,000 MG Ibuprofen 800 mg ONCE ONCE PO 06/15/22 23:00 06/15/22 23:01 DC 06/15/22 22:59 800 MG Vital Signs/I&O 06/15/22 06/15/22 06/15/22 06/15/22 22:34 22:59 22:59 23:25 Temp 39.7 39.6 39.6 Pulse 126 Resp 28 B/P (MAP) 180/111 (134) Pulse Ox 95 93 O2 Delivery Room Air Room Air Capillary Refill : Blood Pressure Mean: 134 Departure Impression Primary Impression: Influenza A Additional Impressions: Illicit drug use Methamphetamine use Marijuana use COPD (chronic obstructive pulmonary disease) Cigarette smoker HTN (hypertension) Disposition: HOME, SELF-CARE Condition: Stable Departure-Patient Inst. Decision time for Depature: 23:35 Referrals: NO,LOCAL PHYSICIAN (PCP) Primary Care Physician Patient Instructions: COPD Exacerbation, Adult ED, How to Use a Metered Dose Inhaler ED, Substance Use Disorder ED, Flu, Adult ED, Quitting Smoking ED, High Blood Pressure ED Add. Discharge Instructions: NO DRUGS!!!! NO SMOKING !!!! USE INHALER EVERY 6 HOURS NEEDED FOR BREATHING TYLENOL 1 GRAM PLUS MOTRIN 800 MG EVERY 6 HOURS FOR PAIN OR FEVER LOTS OF CLEAR LIQUIDS TAKE TAMIFLU TWICE A DAY FOR 5 DAYS FOLLOW UP WITH DR OF CHOICE IN 4-5 DAYS IF NO BETTER, RETURN TO ER IF WORSE YOU NEED TO CALL ON FRIDAY TO SCHEDULE AN APPOINTMENT TO ESTABLISH CARE WITH NEW PRIMARY CARE DR. All discharge instructions reviewed with patient and/or family. Voiced understanding. Scripts Methylprednisolone (Medrol) 4 Mg Tab.ds.pk 4 MG PO UD for 6 Days, #21 PKG PER DOSE PACK INSTRUCTIONS Prov: ROSINA YU DO 06/15/22 Guaifenesin/Dextromethorphan (Mucinex Dm ER 1,200-60 mg Tab) 1,200 Mg-60 Mg Tbmp.12hr 1 EACH PO BID, #20 EA Prov: ROSINA YU DO 06/15/22 Benzonatate (TESSALON PERLES) 100 Mg Capsule 200 MG PO TID, #30 CAP Prov: ROSINA YU DO 06/15/22 Work/School Note: Local Medical [employer] Listing ROSINA YU DO Jun 15, 2022 22:59
[2022-06-15] MEDS ORDERED: ACETAMINOPHEN 500 MG TAB (TYLENOL) PO ONE (23:00)
[2022-06-15] MEDS ORDERED: IBUPROFEN 800 MG (MOTRIN) TAB PO ONE (23:00)
[2022-06-15 23:14] LABS: AMPHETAMINE SCREEN, URINE NEGATIVE (NEGATIVE); BARBITURATE SCREEN URINE NEGATIVE (NEGATIVE); BENZODIAZEPINES SCREEN URINE POSITIVE (NEGATIVE); CANNABINOID SCREEN, URINE POSITIVE (NEGATIVE); COCAINE SCREEN URINE NEGATIVE (NEGATIVE); METHADONE STAT NEGATIVE (NEGATIVE); OPIATE SCREEN URINE NEGATIVE (NEGATIVE); OXYCODONE STAT NEGATIVE (NEGATIVE); PROPOXYPHENE STAT NEGATIVE (NEGATIVE); TRICYCLIC ANTIDEPRESSANTS SCRE NEGATIVE (NEGATIVE)
[2022-06-15] MEDS ORDERED: GUAI1TBM19 PO (23:40)
[2022-06-15] MEDS ORDERED: METH4TAB PO (23:40)
[2022-06-15] MEDS ORDERED: BENZ100C18 PO (23:40)
[2022-06-15] MEDS ORDERED: RX-OSELTAMIVIR 75 MG (TAMIFLU) BOX OF 10 PO STA (23:41)
[2022-06-15] MEDS ORDERED: BENZONATATE 100 MG (TESSALON) CAPSULE PO SCH (23:45)
[2022-06-15] MEDS ORDERED: predniSONE 20 MG TAB PO ONE (23:45)
[2022-06-16 00:13] VITALS: BP 147/89
--- NOTE | 2022-06-16 07:24 | Diagnostic Imaging Report ---
EXAMINATION: Chest 1 view HISTORY: Shortness breath and fever. COMPARISON: None available. FINDINGS: The lungs are clear without edema or pneumonia. No pleural effusion or pneumothorax. Heart size is normal. IMPRESSION: 1. Clear lungs. Dictated by: Dictated on workstation # [id number]
[2022-06-16] MEDS ORDERED: RT--FLUTICASONE/SALMETEROL 232-14 (AIRDUO RespiCLICK) IH SCH (08:00)
== END 2022-06-16 00:14 | disposition home or self-care (01) ==
LOC: EDUNIT# 22:21 → ER 22:22
DX: J10.1 Influenza due to other identified influenza virus with other respiratory manifestations (principal); F15.90 Other stimulant use, unspecified, uncomplicated; F12.90 Cannabis use, unspecified, uncomplicated; J44.9 Chronic obstructive pulmonary disease, unspecified; F17.210 Nicotine dependence, cigarettes, uncomplicated; I10 Essential (primary) hypertension; Z20.822 Contact with and (suspected) exposure to COVID-19
CPT/HCPCS: 71045; 80306; 81000; 87636; 94640; 94664

== ENCOUNTER 2023-04-02 06:02 | Outpatient (CLI) | payer MEDICARE, MEDICAID ==
[~2023-04-02] VITALS: Ht 157.5 cm; Wt 97.3 kg
[~2023-04-02 06:02] MED LIST changes: +BENZ100C18 PO; +GUAI1TBM19 PO; +METH4TAB PO
== END 2023-04-02 17:24 | disposition home or self-care (01) ==
LOC: PREOP 06:02
PROVIDERS: ATTEND Surgery
DX: Z01.818 Encounter for other preprocedural examination (principal)

== ENCOUNTER → 2023-06-18 | Outpatient (CLI) | payer MEDICARE, MEDICAID ==
--- NOTE | 2023-06-18 15:56 | Diagnostic Imaging Report ---
INDICATION: Chronic hand pain. COMPARISON: None. FINDINGS: Three radiographic views of the right hand were obtained and show no evidence of acute fracture or dislocation. There are moderate osteoarthritic changes at the first carpometacarpal joint space. Joint spaces are otherwise maintained. No unexpected radiopaque foreign bodies are seen. IMPRESSION: 1. No acute fracture or dislocation of the right hand. 2. Moderate osteoarthritic changes at the first carpometacarpal joint space. Dictated by: Dictated on workstation # [id number]
== END ==
LOC: RAD 15:17
PROVIDERS: ATTEND Nurse Practitioner Family
DX: M18.9 Osteoarthritis of first carpometacarpal joint, unspecified (principal)
CPT/HCPCS: 73130

== ENCOUNTER → 2023-06-18 | Outpatient (CLI) | payer MEDICARE, MEDICAID ==
--- NOTE | 2023-06-19 09:40 | Diagnostic Imaging Report ---
INDICATION: Routine screening. Comparison is made with prior mammogram from 05/17/2014. 2-D and 3-D bilateral screening mammography was performed with CAD. Scattered fibroglandular densities are identified bilaterally. The parenchymal pattern is stable. Intraparenchymal lymph node upper outer right breast is stable. There are benign calcifications. No spiculated mass or malignant-appearing microcalcifications are identified. Axillae are unremarkable. IMPRESSION: No mammographic features suspicious for malignancy are identified. ACR BI-RADS Category 2: Benign findings. Result letter will be mailed to the patient. Note: At least 10% of breast cancer is not imaged by mammography. BI-RADS Category 2 Dictated by: Dictated on workstation # [id number]
== END ==
LOC: RAD 15:00
PROVIDERS: ATTEND Family Medicine
DX: Z12.31 Encounter for screening mammogram for malignant neoplasm of breast (principal)
CPT/HCPCS: 77063; 77067